=== PATIENT | male | born 1975 | race Caucasian/White ===

== ENCOUNTER → 2020-09-14 | Day surgery (SDC) | payer OTHER ==
[~2020-09-14] VITALS: Ht 190.5 cm; Wt 124.7 kg
[~2020-09-14] MED LIST: CELEXA20 MG PO; LOVAZA1 GM PO; MULTIVITAMIN1 EACH PO; OMEPRAZOLE40 MG PO; RISPERDAL 1MG TA1 MG PO; VITAMIN D325 MC1 PO; ZOCOR40 MG PO
[2020-09-14 07:56] LABS: HCT 32.9 % (42.0-52.0); HGB 9.4 g/dl (13.2-18.0); MCH 21.2 pg (25.0-31.0); MCHC 28.6 g/dL (32.0-36.0); MCV 74.1 fL (78.0-100.0); MPV 10.1 fL (6.0-9.5); RBC 4.44 M/uL (4.70-6.00); RDW 21.5 % (11.5-14.0); WBC 3.9 K/uL (4.0-10.5)
[2020-09-14 08:05] LABS: ALBUMIN 3.8 g/dL (3.4-5.0); BILIRUBIN - TOTAL 0.3 mg/dL (0.2-1.0); BUN/CREAT RATIO (CALC) 12.1 RATIO; CREATININE 1.07 mg/dL (0.67-1.17); GLOBULIN (CALCULATION) 3.8 g/dL; POTASSIUM 3.8 mmol/L (3.5-5.1); TOTAL PROTEIN 7.6 g/dL (6.4-8.2)
== END | disposition home or self-care (01) ==
LOC: FAS 07:05
PROVIDERS: Surgery
DX: D64.9 Anemia, unspecified (principal); K44.9 Diaphragmatic hernia without obstruction or gangrene; K29.70 Gastritis, unspecified, without bleeding; F84.5 Asperger's syndrome; F41.9 Anxiety disorder, unspecified; E11.9 Type 2 diabetes mellitus without complications; K21.9 Gastro-esophageal reflux disease without esophagitis; E78.00 Pure hypercholesterolemia, unspecified; E55.9 Vitamin D deficiency, unspecified; Z88.5 Allergy status to narcotic agent; Z87.891 Personal history of nicotine dependence
CPT/HCPCS: 36415; 80053; J2704; J7120

== ENCOUNTER 2021-01-22 14:20 | Emergency (ER) | payer OTHER ==
[2021-01-22 15:05] LABS: BASOPHIL 0.2 % (0-2); HCT 41.7 % (42.0-52.0); LYMPHOCYTE 29.6 % (15-48); MCH 25.8 pg (25.0-31.0); MCHC 31.2 g/dL (32.0-36.0); MCV 82.7 fL (78.0-100.0); MONOCYTE 9.1 % (0-12); NEUTROPHIL 58.7 % (41-80); NRBC 0; PLT 247 K/uL (150-400); RBC 5.04 M/uL (4.70-6.00); RDW 18.5 % (11.5-14.0)
[2021-01-22 15:06] LABS: WBC 4.5 K/uL (4.0-10.5)
[2021-01-22 15:22] LABS: BUN/CREAT RATIO (CALC) 15.1 RATIO; CREATININE 0.93 mg/dL (0.67-1.17); POTASSIUM 4.4 mmol/L (3.5-5.1)
== END 2021-01-22 16:18 | disposition home or self-care (01) ==
LOC: FER 14:20
PROVIDERS: Nurse Practitioner Family
DX: E86.0 Dehydration (principal); R55 Syncope and collapse; Z88.5 Allergy status to narcotic agent
CPT/HCPCS: 36415; 80048; 85025; 93005; J7030